=== PATIENT | male | born 1985 | race Caucasian/White ===

== ENCOUNTER 2023-03-10 13:51 | Emergency (ER) | payer OTHER ==
[~2023-03-10] VITALS: Ht 167.6 cm; Wt 80.0 kg
[2023-03-10 13:54] VITALS: BP 144/85; PULSE 88; RESP 20; TEMP 98.6; O2SAT 100
[2023-03-10] MEDS ORDERED: OXYCODONE HCL/ACETAMINOPHEN 5/325MG TABLET PO ONE (14:30)
[2023-03-10] MEDS ORDERED: AMOXICILLIN/POTASSIUM CLAVULANATE 875/125MG TAB PO ONE (15:45)
[2023-03-10] MEDS ORDERED: DEXAMETHASONE 10 MG/ML VIAL IM ONE (15:45)
[2023-03-10] MEDS ORDERED: AMOX1TAB16 MT (15:53)
[2023-03-10] MEDS ORDERED: IBUP-2029 MT (15:53)
== END 2023-03-10 18:56 | disposition home or self-care (01) ==
LOC: ER 13:51
DX: S02.85XA Fracture of orbit, unspecified, initial encounter for closed fracture (principal); J45.909 Unspecified asthma, uncomplicated; Y08.89XA Assault by other specified means, initial encounter; Y93.89 Activity, other specified; Y92.89 Other specified places as the place of occurrence of the external cause; Y99.8 Other external cause status
CPT/HCPCS: 99285; 70450; 71045; 73562; 70486; 96372; J1100

== ENCOUNTER → 2023-03-31 | Outpatient (CLI) | payer OTHER ==
[~2023-03-31] MED LIST: AMOX1TAB16 MT; IBUP-2029 MT
== END | disposition home or self-care (01) ==
LOC: MRI 07:55
PROVIDERS: ATTEND Family Medicine Adult Medicine
DX: S83.512A Sprain of anterior cruciate ligament of left knee, initial encounter (principal); M25.462 Effusion, left knee; M25.562 Pain in left knee; X58.XXXA Exposure to other specified factors, initial encounter; Y93.89 Activity, other specified; Y92.89 Other specified places as the place of occurrence of the external cause; Y99.8 Other external cause status
CPT/HCPCS: 73721

== ENCOUNTER 2025-02-21 19:35 | Emergency (ER) | payer BC ==
[~2025-02-21] VITALS: Ht 172.7 cm; Wt 114.0 kg
[2025-02-21] MEDS: ACETAMINOPHEN 500MG TABLET PO ONE (20:08)
[2025-02-21 20:27] VITALS: PULSE 80; RESP 20; O2SAT 98
[2025-02-21] MEDS: IPRATROPIUM/ALBUTEROL 0.5-3(2.5)MG/3ML NEB HHN ONE (20:27)
[2025-02-21 21:01] LABS: INFLUENZA TYPE A Presumptive Negative (Pres. Neg.)
[2025-02-21 21:02] LABS: INFLUENZA TYPE B Presumptive Negative (Pres. Neg.)
[2025-02-21] MEDS ORDERED: IPRATROPIUM/ALBUTEROL 0.5-3(2.5)MG/3ML NEB HHN PRN (21:15)
[2025-02-21] MEDS ORDERED: PROPOFOL 10MG/ML 100ML 100 ML IV PRN (21:15)
[2025-02-21] MEDS ORDERED: ALBU18HF2 IH (21:34)
[2025-02-21] MEDS ORDERED: NIRM1TAB6 PO (21:34)
[2025-02-21] MEDS ORDERED: ACET-2708 MT (21:34)
[2025-02-21 22:00] VITALS: BP 139/88; PULSE 84; RESP 18; TEMP 37.1; O2SAT 98
== END 2025-02-21 22:29 | disposition home or self-care (01) ==
LOC: ER 19:35
DX: U07.1 COVID-19 (principal); J45.909 Unspecified asthma, uncomplicated
CPT/HCPCS: 87804 ×2; 94640; 99283; 87426; Z7610